=== PATIENT | female | born 1990 | race African-American/Black ===

== ENCOUNTER 2021-04-05 21:05 | Emergency (ER) | payer MEDICAID ==
[~2021-04-05] VITALS: Ht 162.6 cm; Wt 93.2 kg
[2021-04-05 21:22] VITALS: BP 153/91; Ht 162.6 cm; Wt 93.2 kg
[2021-04-05 22:48] LABS: BASOPHILS 0.7 % (0-2); HEMOGLOBIN 14.4 g/dL (12-16); LYMPHOCYTES 40.2 % (15-50); MCH 30.3 pg (26.0-34.0); MCHC 33.5 g/dL (31.0-37.0); MCV 90.6 fL (80.0-100.0); MEAN PLATELET VOLUME 8.8 fL (7.4-10.4); MONOCYTES 6.9 % (2-11); NEUTROPHILS 51.2 % (40-80); PLATELET COUNT 308 10x3/uL (130-400); RBC 4.75 10x6/uL (4.00-5.40); RDW 13.5 % (11.5-14.5); WBC 8.8 10x3/uL (4.8-10.8)
[2021-04-05 22:58] LABS: CALC OSMOLALITY 279 mosm/kg (275-300); CALCIUM 9.1 mg/dL (8.5-10.1); CARBON DIOXIDE 28.7 mmol/L (21.0-32.0); CHLORIDE - SERUM 106 mmol/L (98-107); CREATININE - SERUM 0.9 mg/dL (0.6-1.3); GLUCOSE 82 mg/dL (74-106); POTASSIUM - SERUM 3.1 mmol/L (3.5-5.1); SODIUM 141 mmol/L (136-145); UREA NITROGEN 13 mg/dL (7-18); eGFR NON AFRICAN AMERICAN 76 mL/min (90-120)
[2021-04-05 23:15] LABS: ALKALINE PHOSPHATASE 47 U/L (30-120); ALT (SGPT) 26 U/L (10-68); BILIRUBIN - TOTAL 0.32 mg/dL (0.2-1.3); HCG - QUANTITATIVE (MATERNAL) 11 mIU/mL; PROTEIN - SERUM 7.3 g/dL (6.4-8.2)
[2021-04-06 03:17] LABS: HEMATOCRIT 40.4 % (36.0-48.0); HEMOGLOBIN 13.7 g/dL (12-16)
== END 2021-04-06 01:42 | disposition left against medical advice (07) ==
LOC: D.ER 21:05
PROVIDERS: Family Medicine
DX: O02.1 Missed abortion (principal); Z3A.00 Weeks of gestation of pregnancy not specified

== ENCOUNTER 2021-04-06 02:16 | Emergency (ER) | payer MEDICAID ==
[~2021-04-06] VITALS: Ht 162.6 cm; Wt 93.0 kg
[2021-04-06 04:16] VITALS: BP 154/98
[2021-04-06 06:33] LABS: CALC OSMOLALITY 279 mosm/kg (275-300); CARBON DIOXIDE 27.8 mmol/L (21.0-32.0); CHLORIDE - SERUM 106 mmol/L (98-107); CREATININE - SERUM 0.8 mg/dL (0.6-1.3); GLUCOSE 83 mg/dL (74-106); SODIUM 141 mmol/L (136-145); UREA NITROGEN 13 mg/dL (7-18); eGFR NON AFRICAN AMERICAN 87 mL/min (90-120)
[2021-04-06 06:38] LABS: BASOPHILS 0.5 % (0-2); EOSINOPHILS 1.1 % (0-7); HEMATOCRIT 41.3 % (36.0-48.0); HEMOGLOBIN 13.9 g/dL (12-16); LYMPHOCYTES 49.6 % (15-50); MCH 30.6 pg (26.0-34.0); MCHC 33.7 g/dL (31.0-37.0); MCV 90.7 fL (80.0-100.0); MEAN PLATELET VOLUME 8.8 fL (7.4-10.4); MONOCYTES 7.8 % (2-11); PLATELET COUNT 279 10x3/uL (130-400); POTASSIUM - SERUM 4.1 mmol/L (3.5-5.1); RBC 4.55 10x6/uL (4.00-5.40); RDW 13.8 % (11.5-14.5); WBC 6.6 10x3/uL (4.8-10.8)
[2021-04-06 07:44] VITALS: Ht 162.6 cm; Wt 93.0 kg
== END 2021-04-06 12:57 | disposition other institution (70) ==
LOC: D.ER 02:16
PROVIDERS: Obstetrics & Gynecology
DX: O02.1 Missed abortion (principal); Z3A.00 Weeks of gestation of pregnancy not specified